=== PATIENT | female | born 1995 ===

== ENCOUNTER 2017-03-22 18:49 | Emergency (ER) | payer MEDICAID ==
[2017-03-22 19:01] VITALS: BMI 30.1
[2017-03-22 19:04] VITALS: RESP 18; TEMP 98.4
[2017-03-22 19:48] LABS: SQUAMOUS EPITHIAL 3 /hpf (0-5); URINE BILIRUBIN NEGATIVE (NEGATIVE); URINE BLOOD NEGATIVE (NEGATIVE); URINE CLARITY Clear (Clear); URINE COLOR Yellow (YELLOW); URINE GLUCOSE (UA) NORMAL (Normal); URINE LEUKOCYTE ESTERASE NEG Leu/uL (Negative); URINE NITRATE NEGATIVE (NEGATIVE); URINE PROTEIN NEGATIVE (NEGATIVE); URINE UROBILINOGEN NORMAL mg/dL (0.2-1.0)
[2017-03-22 19:49] LABS: HCG,QUALITATIVE URINE NEGATIVE (NEGATIVE)
--- NOTE | 2017-03-22 20:37 | C.PDOC ---
History Of Present Illness 21 y/o female c/o right upper abdomen/flank pain, pressure like, constant, and occasionally worsens, worse after eating. no fever or chills, no nausea or vomiting x 2 days. no urinary symptoms. Time Seen by Provider: 03/22/17 19:38 Chief Complaint (Nursing): Abdominal Pain History Per: Patient History/Exam Limitations: no limitations Onset/Duration Of Symptoms: Days (2) Current Symptoms Are (Timing): Still Present Context: Food Location Of Pain/Discomfort: RUQ, Other (right flank) Quality Of Discomfort: Pressure Associated Symptoms: denies: Fever, Chills, Nausea, Vomiting, Urinary Symptoms Exacerbating Factors: Food Alleviating Factors: None Last Bowel Movement: Today Past Medical History Reviewed: Historical Data, Nursing Documentation, Vital Signs Vital Signs: Last Vital Signs Temp 98.4 F 03/22/17 23:14 Pulse 65 03/22/17 23:14 Resp 18 03/22/17 23:14 BP 117/75 03/22/17 23:14 Pulse Ox 98 03/22/17 23:45 - Medical History PMH: No Chronic Diseases Family History: States: Unknown Family Hx - Social History Hx Tobacco Use: No Hx Alcohol Use: No Hx Substance Use: No - Immunization History Hx Tetanus Toxoid Vaccination: No Hx Influenza Vaccination: No Hx Pneumococcal Vaccination: No Review Of Systems Constitutional: Negative for: Fever, Chills Cardiovascular: Negative for: Chest Pain Respiratory: Negative for: Cough, Shortness of Breath Gastrointestinal: Positive for: Abdominal Pain. Negative for: Nausea, Vomiting , Constipation Genitourinary: Negative for: Dysuria, Vaginal Bleeding Skin: Negative for: Rash Neurological: Negative for: Weakness, Numbness Physical Exam - Physical Exam Appears: Non-toxic, No Acute Distress Skin: Warm, Dry Head: Atraumatic, Normacephalic Oral Mucosa: Moist Neck: Supple Chest: No Deformity, No Tenderness Cardiovascular: Rhythm Regular, No Murmur Respiratory: No Decreased Breath Sounds, No Wheezing Gastrointestinal/Abdominal: Bowel Sounds, Soft, Tenderness (right upper quadrant /lateral aspect, ), No Distention, No Guarding, No Rebound Back: No CVA Tenderness Neurological/Psych: Oriented x3, Normal Speech, Normal Cognition ED Course And Treatment - Laboratory Results Result Diagrams: 03/22/17 20:42 03/22/17 20:42 O2 Sat by Pulse Oximetry: 98 Medical Decision Making Medical Decision Making: ruq pain, worse with food- possible gallstones, could be musculoskeletal; plan: labs ua/upreg. us abdomen. 1101 pm ua neg. us neg for gall stones, labs wnl, will tx for musculoskeltal pain. 1135 pm labs and sonogram discussed with patient. will d/.c home with motrin. clinic f/u Disposition Counseled Patient/Family Regarding: Diagnosis, Need For Followup - Disposition Referrals: [facility] [Outside] Disposition: HOME/ ROUTINE Disposition Time: 23:43 Condition: STABLE Additional Instructions: Follow up in medical clinic in a few days. Take ibuprofen 600 mg by mouth every 6 hours for pain. Return to ER for any worse symptoms. , Prescriptions: Ibuprofen [Motrin] 600 mg PO TID #30 tab Instructions: Musculoskeletal Pain (ED) Forms: [facility] (Frisian), General Discharge Instructions - Clinical Impression Clinical Impression: Flank strain
[2017-03-22 20:54] LABS: BASO # 0.1 K/uL (0.0-0.2); BASO % 0.5 % (0.0-2.0); EOS # 0.4 K/uL (0.0-0.7); EOS % 3.7 % (0.0-4.0); LYMPH # 2.4 K/uL (1.0-4.3); LYMPH % 22.3 % (20.0-40.0); MEAN CELL VOLUME 90.8 fL (81.0-99.0); MEAN CORPUSCULAR HEMOGLOBIN 32.1 pg (27.0-31.0); MEAN CORPUSCULAR HGB CONC 35.4 g/dL (33.0-37.0); MEAN PLATELET VOLUME 7.3 fL (7.2-11.7); MONO # 1.2 K/uL (0.0-0.8); MONO % 11.2 % (0.0-10.0); NEUT # 6.6 K/uL (1.8-7.0); NEUT % 62.3 % (50.0-75.0); RBC 4.36 Mil/uL (3.80-5.20); RED CELL DISTRIBUTION WIDTH 12.6 % (11.5-14.5); WHITE BLOOD COUNT 10.6 K/uL (4.8-10.8)
[2017-03-22 21:08] LABS: ALB/GLOB RATIO 1.2 (1.0-2.1); ALBUMIN 4.5 g/dL (3.5-5.0); ALT/SGPT 44 U/L (9-52); AST/SGOT 33 U/L (14-36); BLOOD UREA NITROGEN 11 mg/dL (7-17); CALCIUM 9.3 mg/dl (8.6-10.4); GFR AFRICAN-AMERICAN > 60; GFR NON-AFRICAN AMERICAN > 60; LIPASE 60 U/L (23-300)
--- NOTE | 2017-03-22 22:16 | US ---
EXAM: US Abdomen Limited, Right Upper Quadrant EXAM DATE/TIME: 03/22/2017 8:13 PM CLINICAL HISTORY: 21 years old, female; Pain; Abdominal pain; Generalized; Additional info: Abd pain ruq TECHNIQUE: Real-time ultrasound of the right upper quadrant with image documentation. COMPARISON: No relevant prior studies available. FINDINGS: There is a negative sonographic Hammonds's sign per nanotechnologist. No gallstones. No pericholecystic fluid. The gallbladder is contracted and the wall measures 2.9 mm. The common bile duct measures 3 mm which is within normal limits. The liver is increased in echogenicity consistent with fatty infiltration. In the right hepatic lobe, there is a 1.2 cm hyperechoic avascular lesion consistent with hemangioma. The pancreas is suboptimally visualized. No right hydronephrosis. The right kidney measures 11 cm in length. The aorta is suboptimally visualized. IMPRESSION: No acute findings.
[2017-03-22 23:14] VITALS: BP 117/75; PULSE 65
[2017-03-22 23:42] VITALS: O2SAT 98
== END 2017-03-22 23:47 | disposition home or self-care (01) ==
LOC: C.ER 18:49
DX: S39.011A Strain of muscle, fascia and tendon of abdomen, initial encounter (principal); X58.XXXA Exposure to other specified factors, initial encounter